=== PATIENT | female | born 1980 | race Caucasian/White ===

== ENCOUNTER 2021-12-20 04:15 | Day surgery (SDC) | payer BC ==
[2021-12-18 09:46] VITALS: BMI 25.7
[2021-12-20] MEDS ORDERED: CEFAZOLIN 2 GM in DEXTROSE 5%-WATER - 100 ML IVPB ONE (13:11)
[2021-12-20] MEDS ORDERED: MIDAZOLAM HCL 2 MG/2 ML SINGLE DOSE VIAL ONE (13:32)
[2021-12-20] MEDS ORDERED: PROPOFOL 20 ML ONE ×3 (13:32)
[2021-12-20] MEDS ORDERED: LIDOCAINE HCL/PF 2% SDV 5ML VIAL ONE (13:32)
[2021-12-20] MEDS ORDERED: SUCCINYLCHOLINE CHLORIDE 200 MG/10 ML SYRINGE ONE (13:33)
[2021-12-20] MEDS ORDERED: ceFAZolin SODIUM 1 GM VIAL IVPB ONE (13:40)
[2021-12-20] MEDS ORDERED: ceFAZolin SODIUM 1 GM VIAL ONE (13:43)
[2021-12-20] MEDS ORDERED: ACETAMINOPHEN 325 MG TABLET (FP) PO PRN ×2 (13:50→14:33)
[2021-12-20] MEDS ORDERED: oxyCODONE HCL 5 MG TABLET PO PRN ×3 (13:50→14:33)
[2021-12-20] MEDS ORDERED: ONDANSETRON 4 MG/2 ML VIAL IVPUSH PRN (13:50)
[2021-12-20] MEDS ORDERED: LACTATED RINGERS SOLUTION 1,000 ML IV SCH ×2 (14:00→14:45)
[2021-12-20] MEDS ORDERED: DEXAMETHASONE SOD PHOSPHATE 4 MG/1 ML VIAL ONE (14:04)
[2021-12-20] MEDS ORDERED: KETOROLAC TROMETHAMINE 30 MG/1 ML VIAL ONE (14:04)
[2021-12-20] MEDS ORDERED: IBUPROFEN 400 MG TABLET (FP) PO PRN (14:33)
[2021-12-20 16:05] VITALS: TEMP 97.3
[2021-12-20 16:47] VITALS: BP 126/78; PULSE 61
== END 2021-12-20 16:38 | disposition home or self-care (01) ==
LOC: JASU-SURG 04:15
PROVIDERS: ATTEND Obstetrics & Gynecology
PROC: 0U5B8ZZ Destruction of Endometrium, Via Natural or Artificial Opening Endoscopic (ICD-10-PCS; principal; 2021-12-20 13:00)
PROC: 0UDB7ZZ Extraction of Endometrium, Via Natural or Artificial Opening (ICD-10-PCS; 2021-12-20 13:00)
DX: N92.0 Excessive and frequent menstruation with regular cycle (principal)
CPT/HCPCS: 88305-TC; 94760